=== PATIENT | male | born 1935 | race Caucasian/White ===

== ENCOUNTER → 2017-03-07 | Outpatient (CLI) | payer MEDICARE, OTHER | END | disposition home or self-care (01) | LOC: PCVCCLINIC 13:38 | PROVIDERS: ATTEND Internal Medicine | DX: I44.2 Atrioventricular block, complete (principal); I10 Essential (primary) hypertension; E78.2 Mixed hyperlipidemia; Z79.82 Long term (current) use of aspirin; Z87.891 Personal history of nicotine dependence | CPT/HCPCS: 80061; 93005; G0463 ==

== ENCOUNTER → 2017-03-21 | Outpatient (CLI) | payer MEDICARE, OTHER ==
--- NOTE | 2017-03-21 17:02 | PCVCIMAG ---
APPROVED REPORT Study performed: 03/21/2017 10:05:40 EXAM: Comprehensive 2D, Doppler, and color-flow Echocardiogram Patient Location: Echo lab Status: routine BSA: 1.88 HR: 36 bpmBP: 140/80 mmHg Rhythm: Bradycardia Other Information Study Quality: Good Indications Heart Block, Hypertension, Hyperlipidemia. 2D Dimensions RVDd: 28.96 mm IVSd: 13.02 (7-11mm)LVOT Diam: 20.28 (18-24mm) LVDd: 41.26 mm PWd: 14.16 (7-11mm)Ascending Ao: 30.84 (22-36mm) LVDs: 32.60 (25-40mm) Left Atrium: 43.22 (27-40mm) LV Single Plane 4CH: 56.29 % LV Single Plane 2CH: 53.85 %Pantoja's LVEF: 55.07 % Biplane EF: 56.3 % Volumes Left Atrial Volume (Systole) Single Plane 4CH: 69.55 mLSingle Plane 2CH: 43.62 mL LA ESV Index: 40.00 mL/m2 Aortic Valve AoV Peak Jorge A.: 1.58 m/s AO Peak Gr.: 10.03 mmHgLVOT Max P.47 mmHg LVOT Max V: 1.17 m/s TIMMY Vmax: 2.38 cm2 Mitral Valve E/A Ratio: 0.8 MV Decel. Time: 181.87 ms MV E Max Jorge A.: 0.76 m/s MV A Jorge A.: 0.95 m/s MV PHT: 52.74 ms TDI E/Lateral E': 6.33E/Medial E': 12.67 Medial E' Jorge A.: 0.06 m/s Lateral E' Jorge A.: 0.12 m/s Pulmonary Valve PV Peak Gr.: 2.82 mmHg Tricuspid Valve TR Peak Jorge A.: 2.69 m/s TR Peak Gr.: 28.93 mmHg Left Ventricle The left ventricle is normal size. There is normal LV segmental wall motion. There is normal left ventricular wall thickness. Left ventricular systolic function is normal. The left ventricular ejection fraction is within the normal range. LVEF is 50-55%. Unable to assess Right Ventricle The right ventricle is normal size. The right ventricular systolic function is normal. Atria Left atrium is dilated. Right atrium is dilated. Aortic Valve The aortic valve is trileaflet, mildly calcified No aortic regurgitation is present. There is no aortic valvular stenosis. Mitral Valve Mild mitral annular calcification Mild mitral valve regurgitation noted. No evidence of mitral valve stenosis. Tricuspid Valve The tricuspid valve is normal in structure. Moderate tricuspid regurgitation. Pulmonic Valve The pulmonary valve is normal in structure. Mild pulmonic regurgitation. Great Vessels The aortic root is normal in size. IVC is normal in size and collapses with >50% inspiration Pericardium There is no pericardial effusion. <Conclusion> Left ventricular systolic function is normal. There is normal LV segmental wall motion. LVEF is 50-55%. Both atria are dilated. The aortic valve is trileaflet, mildly calcified, no aortic insufficiency or stenosis. Mild mitral annular calcification Mild mitral valve regurgitation noted. Pulmonary artery pressure of 35mmHg There is no pericardial effusion.
== END | disposition home or self-care (01) ==
LOC: PCVCIMAG 09:45
PROVIDERS: ATTEND Internal Medicine
DX: I08.1 Rheumatic disorders of both mitral and tricuspid valves (principal); I44.2 Atrioventricular block, complete; I10 Essential (primary) hypertension; I45.9 Conduction disorder, unspecified; E78.2 Mixed hyperlipidemia
CPT/HCPCS: 93306

== ENCOUNTER → 2017-12-14 | Outpatient (CLI) | payer MEDICARE, OTHER | END | disposition home or self-care (01) | LOC: PCVCCLINIC 09:53 | DX: I44.2 Atrioventricular block, complete (principal); I10 Essential (primary) hypertension; E78.5 Hyperlipidemia, unspecified; Z95.0 Presence of cardiac pacemaker; Z87.891 Personal history of nicotine dependence; Z79.82 Long term (current) use of aspirin | CPT/HCPCS: 80061; 93005; G0463 ==

== ENCOUNTER → 2018-06-24 | Outpatient (CLI) | payer MEDICARE, OTHER | END | disposition home or self-care (01) | LOC: PCVCCLINIC 10:58 | PROVIDERS: ATTEND Internal Medicine | DX: I44.2 Atrioventricular block, complete (principal); I10 Essential (primary) hypertension; E78.5 Hyperlipidemia, unspecified; Z95.0 Presence of cardiac pacemaker | CPT/HCPCS: 93005; G0463 ==

== ENCOUNTER → 2018-12-23 | Outpatient (CLI) | payer MEDICARE, OTHER ==
--- NOTE | 2018-12-23 11:38 | PCVCIMAG ---
APPROVED REPORT Study performed: 12/23/2018 08:05:50 EXAM: Comprehensive 2D, Doppler, and color-flow Echocardiogram Patient Location: Echo lab Status: routine BSA: 1.90 HR: 60 bpmBP: 120/80 mmHg Rhythm: Pacemaker Other Information Study Quality: Good Risk Factors: Cardiac Risk Factors: HTN, Hyperlipidemia Indications Pacemaker 2D Dimensions IVSd: 17.53 (7-11mm)LVOT Diam: 23.35 (18-24mm) LVDd: 42.97 mm PWd: 15.67 (7-11mm)Ascending Ao: 34.11 (22-36mm) LVDs: 29.17 (25-40mm) Left Atrium: 45.49 (27-40mm) Aortic Root: 31.06 mm LV Single Plane 4CH: 50.56 % LV Single Plane 2CH: 67.19 % Biplane EF: 59.6 % Volumes Left Atrial Volume (Systole) Single Plane 4CH: 91.35 mLSingle Plane 2CH: 93.75 mL LA ESV Index: 55.00 mL/m2 Aortic Valve AoV Peak Jorge A.: 1.54 m/s AO Peak Gr.: 9.46 mmHgLVOT Max P.70 mmHg LVOT Max V: 0.91 m/s TIMMY Vmax: 2.53 cm2 Mitral Valve E/A Ratio: 1.3 MV Decel. Time: 279.06 ms MV E Max Jorge A.: 0.56 m/s MV A Jorge A.: 0.44 m/s TDI E/Lateral E': 8.00E/Medial E': 11.20 Medial E' Jorge A.: 0.05 m/s Lateral E' Jorge A.: 0.07 m/s Pulmonary Valve PV Peak Gr.: 1.51 mmHg Tricuspid Valve TR Peak Jorge A.: 2.99 m/s TR Peak Gr.: 35.68 mmHg Left Ventricle The left ventricle is normal size. There is normal LV segmental wall motion. Mild concentric left ventricular hypertrophy. Left ventricular systolic function is normal. The left ventricular ejection fraction is within the normal range. LVEF is >55%. The left ventricular diastolic function is normal. Right Ventricle The right ventricle is normal size. The right ventricular systolic function is normal. Pacemaker lead is present in the right ventricle. Atria Left atrium is severely dilated. Right atrium is severely dilated. Pacemaker lead is present in the right atrium. Aortic Valve The aortic valve is normal in structure. No aortic regurgitation is present. There is no aortic valvular stenosis. Mitral Valve The mitral valve is normal in structure. Mild mitral regurgitation. No evidence of mitral valve stenosis. Tricuspid Valve The tricuspid valve is normal in structure. Mild tricuspid regurgitation. Pulmonary artery pressure is 43mmhg. Pulmonic Valve The pulmonary valve is normal in structure. There is no pulmonic valvular regurgitation. Great Vessels The aortic root is normal in size. IVC is normal in size and collapses >50% with inspiration. Pericardium There is no pericardial effusion. <Conclusion> The left ventricle is normal size. LVEF is >55%. The right ventricular systolic function is normal. Pacemaker lead is present in the right ventricle. Left atrium is severely dilated. Right atrium is severely dilated. Pacemaker lead is present in the right atrium. The aortic valve is normal in structure. The mitral valve is normal in structure. Mild mitral regurgitation. The tricuspid valve is normal in structure. Mild tricuspid regurgitation. Pulmonary artery pressure is 43mmhg. The pulmonary valve is normal in structure. There is no pericardial effusion.
== END | disposition home or self-care (01) ==
LOC: PCVCIMAG 07:45
PROVIDERS: ATTEND Internal Medicine
DX: I08.1 Rheumatic disorders of both mitral and tricuspid valves (principal); I44.2 Atrioventricular block, complete; I10 Essential (primary) hypertension; R00.1 Bradycardia, unspecified; E78.5 Hyperlipidemia, unspecified; Z95.0 Presence of cardiac pacemaker
CPT/HCPCS: 93306

== ENCOUNTER → 2019-07-14 | Outpatient (CLI) | payer MEDICARE, OTHER | END | disposition home or self-care (01) | LOC: PCVCCLINIC 11:00 | PROVIDERS: ATTEND Internal Medicine | DX: I10 Essential (primary) hypertension (principal); I44.2 Atrioventricular block, complete; E78.5 Hyperlipidemia, unspecified; Z95.0 Presence of cardiac pacemaker; Z79.82 Long term (current) use of aspirin; Z79.899 Other long term (current) drug therapy; Z87.891 Personal history of nicotine dependence | CPT/HCPCS: 80061; 93005; 93280; G0463 ==